=== PATIENT | female | born 1955 | race American Indian/Alaskan Native ===

== ENCOUNTER 2018-06-24 08:07 | Outpatient (CLI) | payer MEDICARE ==
--- NOTE | 2018-06-24 13:07 | PET Report ---
PET SB TO MT INITIAL: HISTORY: 1.7 cm lung mass. TECHNIQUE: 12.2 millicuries F-18 FDG was administered intravenously. Noncontrast CT images and PET images were obtained from the skull base to the proximal thighs. Fused images were reviewed on a workstation. The patient's blood glucose level measured 186. COMPARISON: None at this facility. COMMENT: The PET images are slightly limited with increased soft tissue activity secondary to a blood glucose level of 186. FINDINGS: BRAIN: physiologic FDG uptake in the imaged brain. NECK: physiologic FDG uptake. MEDIASTINUM: physiologic FDG uptake. Borderline to mild cardiomegaly is noted. LUNGS: physiologic FDG uptake. A 1.8 cm partially cavitating lesion is identified in the subpleural right upper lobe. Max SUV of this lesion measures 1.6. No additional lung lesion or hypermetabolic mass. PLEURA/PERICARDIUM: physiologic FDG uptake. Small layering pleural effusions are noted bilaterally. THORACIC LYMPH NODES: physiologic FDG uptake. HEPATOBILIARY: physiologic FDG uptake. Mean liver SUV measures 3.3. PANCREAS: physiologic FDG uptake. The pancreas is atrophic with calcifications suggesting chronic pancreatitis SPLEEN: physiologic FDG uptake. ADRENAL GLANDS: physiologic FDG uptake. KIDNEYS/RENAL COLLECTING SYSTEMS: physiologic FDG uptake. BOWEL/MESENTERY: physiologic FDG uptake. PELVIC VISCERA: physiologic FDG uptake. 2 cm calcified uterine fibroid at the uterine fundus is noted. ABDOMINAL/PELVIC LYMPH NODES: physiologic FDG uptake. MUSCULOSKELETAL: physiologic FDG uptake. IMPRESSION: Negative PET/CT. A 1.8 cm partially cystic lesion is noted in the right upper lobe. This lesion is hypometabolic with Max SUV measuring 1.6. No suspicious areas of hypermetabolic activity are identified. Consider surveillance with CT chest with contrast.
== END 2018-06-24 08:08 | disposition home or self-care (01) ==
LOC: PET 08:07
PROVIDERS: ATTEND Internal Medicine Hematology & Oncology
DX: C34.11 Malignant neoplasm of upper lobe, right bronchus or lung (principal); R73.09 Other abnormal glucose
CPT/HCPCS: 78815; 82962; A9552